=== PATIENT | male | born 1955 | race Caucasian/White ===

== ENCOUNTER → 2018-02-12 11:14 | Outpatient (REF) | payer MEDICARE, OTHER, SELFPAY ==
[2018-02-12 19:47] LABS: HCT 44.7 % (40.0-50.0); HGB 14.8 g/dL (13.5-17.5); Mean Corp. HGB Concentration 33.1 g/dL (32.0-36.0); Mean Corpuscular Hemoglobin 32.1 pg (27.0-33.0); Mean Platelet Volume 9.3 fL (8.0-11.0); Platelet Count 274 x1000/uL (130-400); RBC 4.61 m/cumm (4.50-6.00); RBC Distribution Width 12.9 % (11.8-14.1); White Blood Cell Count 5.96 k/cumm (4.4-10.8)
[2018-02-12 20:08] LABS: ALT 33 U/L (12-78); AST 32 U/L (15-37); Albumin 4.1 g/dL (3.4-5.0); Alkaline Phosphatase 38 U/L (46-116); Anion Gap 8.5 mmol/L (3-11); BUN 11 mg/dL (7-18); Bilirubin, Total 0.5 mg/dL (0.2-1.0); CO2 26.5 mmol/L (21.0-32.0); CREATININE 1.24 mg/dL (0.70-1.30); Calcium 9.1 mg/dL (8.5-10.1); Chloride 104 mmol/L (98-107); Estimated GFR 58.88 (mL/min/1.73m2); Glucose 91 mg/dL (70-100); Lipase 255 U/L (73-393); Potassium 4.2 mmol/L (3.5-5.1); Sodium 139 mmol/L (136-145); Total Protein 7.2 g/dL (6.4-8.2)
== END ==
LOC: NCHCN 11:14
PROVIDERS: PCP Family Medicine; Visit Provider Family Medicine
DX: R06.09 Other forms of dyspnea (principal); R07.89 Other chest pain; R11.0 Nausea; R51 Headache
CPT/HCPCS: 80053; 83690; 85027; 84443

== ENCOUNTER → 2018-04-02 09:49 | Outpatient (BNVA) | payer MEDICARE, OTHER, SELFPAY | PROVIDERS: PCP Family Medicine; Visit Provider Psychiatry & Neurology Neurology | DX: G20 Parkinson's disease (principal); M54.16 Radiculopathy, lumbar region; R11.0 Nausea | CPT/HCPCS: 99214 ==

== ENCOUNTER 2018-04-02 11:30 | Outpatient (CLI) | payer MEDICARE, OTHER, SELFPAY ==
[2018-04-03 16:20] LABS: Ceruloplasmin 22.5 mg/dL
[2018-04-03 21:01] LABS: Copper, Serum 0.93 mcg/mL (0.75-1.45)
[2018-04-04 12:13] LABS: Manganese, Serum <1.0 ng/mL (<2.4)
[2018-04-04 15:29] LABS: Arsenic <1 ng/mL (0-12); Cadmium 0.2 ng/mL (0.0-4.9); Health Care Provider State VT; Mercury <1 ng/mL (0-9); Patient State VT; Submitting Laboratory Phone 802-748-7458; Venous/Capillary Venous
[2018-04-07 12:12] LABS: Serotonin 602 ng/mL (<=230)
== END 2018-04-02 11:50 ==
PROVIDERS: PCP Family Medicine; Visit Provider Psychiatry & Neurology Neurology
DX: R63.3 Feeding difficulties (principal); G20 Parkinson's disease; G62.89 Other specified polyneuropathies; R63.4 Abnormal weight loss
CPT/HCPCS: 36415; 82390; 99214; 82175; 82300; 82525; 83655; 83785; 83825; 84260

== ENCOUNTER 2018-04-09 01:29 | Outpatient (CLI) | payer MEDICARE, OTHER, SELFPAY ==
--- NOTE | 2018-04-09 14:40 | DI.MRI_ITS ---
SYMPTOMS/DIAGNOSIS: LEFT LEG TIGHTNESS AND PAIN, LUMBAR RADICULOPATHY, M54.16 MRI OF THE LUMBAR SPINE: Comparison is made with June,. T1, T2 and STIR sagittal and T1 and T2 axial sequences were performed. Vertebral bodies are well maintained in height. The marrow signal appears normal. There are endplate osteophytes projecting mainly anteriorly. The T12-L1 through L2-3 discs appear intact. There is partial disc desiccation and disc bulging at L3-4, which again causes bilateral neural foraminal narrowing. Mild disc bulging is seen at L4-5. There is slight bulging of the L5-S1 disc. The conus medullaris appears normal. The aorta is normal in diameter. IMPRESSION: Stable degenerative disc changes and neural foraminal narrowing at L3-4.
== END 2018-04-09 01:49 ==
PROVIDERS: PCP Family Medicine; Visit Provider Psychiatry & Neurology Neurology
DX: M54.16 Radiculopathy, lumbar region (principal); M51.16 Intervertebral disc disorders with radiculopathy, lumbar region
CPT/HCPCS: 72148

== ENCOUNTER 2018-04-16 08:34 | Outpatient (CLI) | payer MEDICARE, OTHER, SELFPAY ==
--- NOTE | 2018-04-16 10:41 | PDOC.PAIN ---
Pain Clinic Procedure Note Current Active Problems Problem Status Onset Lumbar radiculopathy Chronic EPIDURAL STEROID WITH CATHETER INJECTION PROCEDURE NOTE COMMENTS: Patient has back pain with the left lower extremity foot. He was last seen on 2014 and had one epidural steroid injection and then a transforaminal at L3-4 gave him excellent relief for over a year. However pain is at time is going to his knee now. Has not had an updated MRI JUAN DIEGO RODRIGUEZ has been referred to the [facility] for lumbar epidural steroid injection. Patient was greeted by the nurse who verified patients name and . Patient was then taken to the fluoroscopy suite. Patient was interviewed and the medical record reviewed. There were no medical, pharmacologic, radiographic, or other structural contraindications to attempting fluoroscopically guided lumbar epidural steroid injection. Risks and expected side effects as well as potential benefits of the procedure were reviewed and voiced concerns addressed. The patient consent form was signed and witnessed. Standard time-out procedure was performed. Patient was placed in the prone position on the fluoroscopy table and automated blood pressure cuff and pulse oximeter applied. The skin entry point for entering/approaching the epidural space by a {L5-S1} and marked. Following thorough chlorhexadine preparation of the skin and draping and 1% lidocaine infiltration of the skin entry point and subcutaneous tissues, a 17 gauge Touhy needle was placed under fluoroscopic guidance and with loss of resistance technique into the epidural space. Needle tip placement and depth were aided and confirmed by fluoroscopy. There was no paresthesia or return of blood or CSF through the needle. An Arrow cath was thread to the {left and cephalad to L4} and 1 cc's of Omnipaque 240 was injected with clear epidural spread confirmed with fluoroscopy. 80mg depomedrol was injected. There was not any unusual discomfort expressed. Vital signs were stable throughout the procedure and were as recorded in nursing records. Follow up plans and appointments were discussed.Post procedure instruction was given as documented in nursing records and having met discharge criteria and was discharged from the [facility]. COMMENTS:f/u as needed. Would obtain new MRI if not better
--- NOTE | 2018-04-16 10:44 | PDOC.PAIN_ITS ---
Pain Clinic Procedure Note Current Active Problems Problem Status Onset Lumbar radiculopathy Chronic EPIDURAL STEROID WITH CATHETER INJECTION PROCEDURE NOTE COMMENTS: Patient has back pain with the left lower extremity foot. He was last seen on 2014 and had one epidural steroid injection and then a transforaminal at L3-4 gave him excellent relief for over a year. However pain is at time is going to his knee now. Has not had an updated MRI JUAN DIEGO RORDIGUEZ has been referred to the [facility] for lumbar epidural steroid injection. Patient was greeted by the nurse who verified patients name and . Patient was then taken to the fluoroscopy suite. Patient was interviewed and the medical record reviewed. There were no medical , pharmacologic, radiographic, or other structural contraindications to attempting fluoroscopically guided lumbar epidural steroid injection. Risks and expected side effects as well as potential benefits of the procedure were reviewed and voiced concerns addressed. The patient consent form was signed and witnessed. Standard time-out procedure was performed. Patient was placed in the prone position on the fluoroscopy table and automated blood pressure cuff and pulse oximeter applied. The skin entry point for entering/approaching the epidural space by a {L5-S1} and marked. Following thorough chlorhexadine preparation of the skin and draping and 1% lidocaine infiltration of the skin entry point and subcutaneous tissues, a 17 gauge Touhy needle was placed under fluoroscopic guidance and with loss of resistance technique into the epidural space. Needle tip placement and depth were aided and confirmed by fluoroscopy. There was no paresthesia or return of blood or CSF through the needle. An Arrow cath was thread to the {left and cephalad to L4 } and 1 cc's of Omnipaque 240 was injected with clear epidural spread confirmed with fluoroscopy. 80mg depomedrol was injected. There was not any unusual discomfort expressed. Vital signs were stable throughout the procedure and were as recorded in nursing records. Follow up plans and appointments were discussed.Post procedure instruction was given as documented in nursing records and having met discharge criteria and was discharged from the [facility]. COMMENTS:f/u as needed. Would obtain new MRI if not better
--- NOTE | 2018-04-16 10:44 | DI.RAD_ITS ---
SYMPTOM/DIAGNOSIS: PAIN, INJECTION C-ARM: Fluoroscopy Time: 22.1 seconds Images submitted from the pain clinic demonstrate needle positioning over the lower lumbar spine with injection of contrast material.
[2018-04-16] MEDS: Omnipaque 240 MG/ML 50 ML BTL IJ (10:56)
[2018-04-16] MEDS: methylPREDNISolone ACETATE 40 MG/ML VIAL IJ (10:56)
[2018-04-16 10:57] VITALS: BP 144/83; PULSE 87; RESP 17
== END 2018-04-16 08:54 ==
PROVIDERS: PCP Family Medicine; Visit Provider Anesthesiology Pain Medicine
DX: M54.16 Radiculopathy, lumbar region (principal); G89.29 Other chronic pain
CPT/HCPCS: 62323; 72100; J1030; Q9967

== ENCOUNTER 2018-04-19 10:10 | Outpatient (REF) | payer MEDICARE, OTHER, SELFPAY ==
[2018-04-22 15:27] LABS: 5-Hydroxyindoleacetic Acid, U 7.3 mg/24 h (<=8.0); Urine Volume 2350 mL
== END 2018-04-19 10:30 ==
LOC: LBN 10:10
PROVIDERS: PCP Family Medicine; Visit Provider Psychiatry & Neurology Neurology
DX: G20 Parkinson's disease (principal); R79.0 Abnormal level of blood mineral
CPT/HCPCS: 83497

== ENCOUNTER 2018-05-21 09:52 | Outpatient (CLI) | payer MEDICARE, OTHER, SELFPAY ==
--- NOTE | 2018-05-21 06:00 | DI.RAD_ITS ---
SYMPTOMS/DIAGNOSIS: LUMBAR RADICULOPATHY C-ARM FLUOROSCOPY OF THE LUMBAR SPINE: Fluoroscopy Time: 49 sec Fluoroscopy was provided for guidance with lumbar spine Pain Clinic injections. Hard copy images show needle placement on both sides of the spine. Please see procedure note for details.
[2018-05-21 10:24] VITALS: BP 118/75; PULSE 73; RESP 24; TEMP 37.3; O2SAT 98
--- NOTE | 2018-05-21 11:33 | PDOC.PAIN ---
Pain Clinic Procedure Note Current Active Problems Problem Status Onset Lumbar disc displacement without myelopathy Chronic LUMBAR / SACRAL TRANSFORAMINAL INJECTION JUAN DIEGO RODRIGUEZ has been referred to the [facility] for a transforaminal nerve root block and steroid injection. COMMENTS: patient had a epidural injection for his left at L4 which gave good relief. In the past she has had transforaminal L3 on the left helped the pain above his knee. He does have some foraminal stenosis bilaterally at the L3-4 and also complaining of right leg pain Patient was interviewed and the medical record reviewed. There were no medical, pharmacologic, radiographic or other structural contraindications to attempting fluoroscopically guided transforaminal nerve root block and epidural steroid injection. Risks and expected side effects as well as potential benefit of the procedure were reviewed and voiced concerns addressed. The printed consent form was signed and witnessed. Standard time-out procedure was performed. Patient was placed in the prone position on the fluoroscopy table and automated blood pressure cuff and pulse oximeter applied. Fluoroscopy was utilized to identify the {bilateral} neural foramen between L3 and L4 . A skin mikey was made for the needle insertion site. A Chlorhexadine prep was carried out, and sterile drapes were applied. Local anesthesia was achieved in the skin and subcutaneous tissues. A 22 gauge curved tip spinal needle was then inserted, advanced with fluoroscopic guidance into the neural foramen, confirmed on the lateral view. After negative aspiration, 2 ml of Omnipaque 240 was injected confirming position in A/P and lateral views. This showed a good spread of dye transforaminally into the epidural space. There was no vascular update with contrast injection under continuous fluoroscopy and digital substraction. 40 mg of Depo-Medrol was injected, followed by 0.5 ml of 0.5% bupivacaine flush for the nerve root block, as well. There was no unusual discomfort expressed.The needle was withdrawn. The patient tolerated the procedure well. A Band-Aid was applied. Vital signs were stable throughout the procedure and were as recorded in nursing records. If given, dosages of intravenous drugs for anxiolysis and analgesia were documented in nursing records. Follow up plans and appointments were discussed. Post procedure instruction was given as documented in nursing records and patient was discharged in the care of an identified meals on wheels driver. COMMENTS pain went from 12/24-07/27. Will follow-up as needed. CC: Sera Moore
--- NOTE | 2018-05-21 11:37 | PDOC.PAIN_ITS ---
Pain Clinic Procedure Note Current Active Problems Problem Status Onset Lumbar disc displacement without myelopathy Chronic LUMBAR / SACRAL TRANSFORAMINAL INJECTION JUAN DIEGO RODRIGUEZ has been referred to the [facility] for a transforaminal nerve root block and steroid injection. COMMENTS: patient had a epidural injection for his left at L4 which gave good relief. In the past she has had transforaminal L3 on the left helped the pain above his knee. He does have some foraminal stenosis bilaterally at the L3-4 and also complaining of right leg pain Patient was interviewed and the medical record reviewed. There were no medical , pharmacologic, radiographic or other structural contraindications to attempting fluoroscopically guided transforaminal nerve root block and epidural steroid injection. Risks and expected side effects as well as potential benefit of the procedure were reviewed and voiced concerns addressed. The printed consent form was signed and witnessed. Standard time-out procedure was performed. Patient was placed in the prone position on the fluoroscopy table and automated blood pressure cuff and pulse oximeter applied. Fluoroscopy was utilized to identify the {bilateral} neural foramen between L3 and L4 . A skin mikey was made for the needle insertion site. A Chlorhexadine prep was carried out, and sterile drapes were applied. Local anesthesia was achieved in the skin and subcutaneous tissues. A 22 gauge curved tip spinal needle was then inserted, advanced with fluoroscopic guidance into the neural foramen, confirmed on the lateral view. After negative aspiration, 2 ml of Omnipaque 240 was injected confirming position in A/P and lateral views. This showed a good spread of dye transforaminally into the epidural space. There was no vascular update with contrast injection under continuous fluoroscopy and digital substraction. 40 mg of Depo-Medrol was injected, followed by 0.5 ml of 0.5% bupivacaine flush for the nerve root block, as well. There was no unusual discomfort expressed.The needle was withdrawn. The patient tolerated the procedure well. A Band-Aid was applied. Vital signs were stable throughout the procedure and were as recorded in nursing records. If given, dosages of intravenous drugs for anxiolysis and analgesia were documented in nursing records. Follow up plans and appointments were discussed. Post procedure instruction was given as documented in nursing records and patient was discharged in the care of an identified national van truck driver. COMMENTS pain went from 12/24-07/27. Will follow-up as needed. CC: Sera Moore
[2018-05-21] MEDS: Omnipaque 240 MG/ML 50 ML BTL IJ (11:40)
[2018-05-21] MEDS: methylPREDNISolone ACETATE 40 MG/ML VIAL IM (11:41)
[2018-05-21 11:42] VITALS: BP 159/94; PULSE 84; RESP 18; O2SAT 98
[2018-05-21] MEDS: Bupivacaine 0.5% Pres-Free 30 ML VIAL IJ (11:42)
== END 2018-05-21 10:12 ==
PROVIDERS: PCP Family Medicine; Visit Provider Anesthesiology Pain Medicine
DX: M51.26 Other intervertebral disc displacement, lumbar region (principal); G89.29 Other chronic pain
CPT/HCPCS: 64483; 72100; J1030; Q9967

== ENCOUNTER 2018-06-11 08:53 | Outpatient (CLI) | payer MEDICARE, OTHER, SELFPAY ==
[2018-06-11 09:10] VITALS: BP 136/78; PULSE 77; RESP 22; TEMP 37.1; O2SAT 97
--- NOTE | 2018-06-11 09:36 | DI.RAD_ITS ---
SYMPTOMS/DIAGNOSIS: SACROILIAC JOINT DYSFUNCTION C-ARM FLUOROSCOPY, PAIN CLINIC, SACROILIAC: Fluoroscopy Time: 13.8 sec, 3.19 mGy C-arm fluoroscopy was utilized by Dr. Wu. Please see Dr. Wu's procedure note. Hard copies show right SI joint injection.
[2018-06-11 09:50] VITALS: BP 156/78; PULSE 99; RESP 18; O2SAT 98
--- NOTE | 2018-06-11 10:02 | PDOC.PAIN_ITS ---
Pain Clinic Procedure Note Current Active Problems Problem Status Onset Sacroiliac joint dysfunction of right side Chronic INTRA-ARTICULAR SI JOINT INJECTION JUAN DIEGO RODRIGUEZ has been referred to the [facility] for intra- articular SI joint injection. COMMENTS: Patient has had 2 epidural steroid injections back with symptoms which have worked to some extent. Right side hip and leg pain. Reviewed his recent MRI from 2018 show much other than some degenerative changes and some mild foraminal narrowing at L3-4. On exam he does have positive Kemps maneuver as well as positive tenderness over right SI joint including Felix's, compression and hip thrust. Patient was interviewed and the medical record reviewed. There were no medical, pharmacologic, radiographic or other structural contraindications to attempting fluoroscopically guided intra-articular SI joint injection. Risks and expected side effects as well as potential benefit of the procedure were reviewed and voiced concerns addressed. The printed consent form was signed and witnessed. Standard time-out procedure was performed. Patient was placed in the prone position on the fluoroscopy table and automated blood pressure cuff and pulse oximeter applied. The skin entry point for approaching {right/} SI joints was identified under the most advantageous fluoroscopic view and marked. Following thorough Chlorhexadine preparation of the skin and draping and 1% lidocaine infiltration of the skin entry point and subcutaneous tissues, a 22 gauge spinal needle was placed under fluoroscopic guidance into {right} SI joints was identified under the most advantageous fluoroscopic view and marked. Following thorough Chlorhexadine preparation of the skin and draping and 1% lidocaine infiltration of the skin entry point and subcutaneous tissues, a 22 gauge spinal needle was placed under fluoroscopic guidance into {right/} SI joint. Intra-articular placement was confirmed by a clear arthrogram resulting from the injection of 0.25ml Omnipaque 240, 1ml 0.5% bupivacaine, and half ml (40mg) of 80mg concentration Depomedrol were injected intra-articularily with an initial reproduction of a significant component of the usual pain. Vital signs were stable throughout the procedure and were as recorded in the docflowsheet by the nursing staff. If given, dosages of intravenous drugs for anxiolysis and analgesia were documented in MAR. Follow up plans and appointments were discussed with the patient. Post procedure instruction was given as documented in nursing documentation and having met discharge criteria, and was discharged from the [facility]. COMMENTS: Pain went from 12/24-06/26. He will follow-up with me as needed. Get relief still having leg pain asked him to return to Dr. Steen for further evaluation and possible nerve testing. CC: Sera Moore
[2018-06-11] MEDS: Bupivacaine 0.5% Pres-Free 30 ML VIAL IJ (10:03)
[2018-06-11] MEDS: Omnipaque 240 MG/ML 50 ML BTL IJ (10:04)
[2018-06-11] MEDS: methylPREDNISolone ACETATE 80 MG/ML VIAL IM (10:06)
== END 2018-06-11 09:13 ==
PROVIDERS: PCP Family Medicine; Visit Provider Anesthesiology Pain Medicine
DX: M53.3 Sacrococcygeal disorders, not elsewhere classified (principal)
CPT/HCPCS: 27096; 72200; J1040; Q9967

== ENCOUNTER → 2018-06-30 10:18 | Outpatient (BNVA) | payer MEDICARE, OTHER, SELFPAY | PROVIDERS: PCP Family Medicine; Referring Provider Family Medicine; Visit Provider Physical Therapy Assistant | DX: Z12.11 Encounter for screening for malignant neoplasm of colon (principal); G20 Parkinson's disease ==

== ENCOUNTER → 2018-07-07 14:31 | Outpatient (BNVA) | payer MEDICARE, OTHER, SELFPAY | PROVIDERS: PCP Family Medicine; Visit Provider Psychiatry & Neurology Neurology | DX: G20 Parkinson's disease (principal); M54.16 Radiculopathy, lumbar region | CPT/HCPCS: 99214 ==

== ENCOUNTER 2018-07-15 08:45 | Outpatient (CLI) | payer MEDICARE, OTHER, SELFPAY | END 2018-07-15 09:05 | PROVIDERS: PCP Family Medicine; Visit Provider Surgery | DX: Z12.11 Encounter for screening for malignant neoplasm of colon (principal); Z01.818 Encounter for other preprocedural examination ==

== ENCOUNTER 2018-07-21 06:08 | Day surgery (SDC) | payer MEDICARE, OTHER, SELFPAY ==
--- NOTE | 2018-07-21 06:25 | W.COLOREPORT ---
Date of service: 07/21/18 Time of Service: 07:42 Colonoscopy Report Date of procedure: 07/21/18 Pre-op diagnosis general: Colon Cancer Screening/LUQ pain Post-op diagnosis procedure note: same Procedure: Colonoscopy Surgeon: Merissa Ray Anesthesia proc note operative: MAC (Jose Mayer, SANJIV/ ASA 3) Estimated blood loss (mL): 0 Pathology: none sent Complications: None Disposition: same day Indications: Mr. Culver was seen in the office for a screening colonoscopy. His last colonoscopy was in 2004 and was normal. Risks, benefits and complications have been reviewed. Complications include but are not limited to bleeding, pain, perforation, missed small lesion/polyp, sore throat, aspiration and adverse reaction to the medications. Questions were entertained and answered to their satisfaction and they wished to proceed. No guarantees were given or implied. Prep: Miralax/Dulcolax Procedure Start Time: 07:42 Procedure End Time: 08:02 Retraction Time: 11 minutes Findings: Normal colon Procedure Description: After informed consent was obtained the patient was taken to the procedure room and placed in a left decubitous position. Monitors were applied and a time out was done. The patients name, date of , procedure, allergies to medications and metal in their body was reviewed. The patient was then sedated. Once sedated and comfortable a rectal exam was done. External exam was normal. Internal exam revealed a normal sphincter tone and no palpable masses. The prostate felt smooth. The scope was then introduced and retro-flexed. No internal hemorrhoids were identified. The scope was then advanced to the cecum without difficulty. The TI and appendiceal orifice were identified. The prep was adequate. The scope was then slowly retracted over 11 minutes back into the rectum. There were no polyps and no diverticulosis. The scope was removed and the patient was woken up and taken back to Same day surgery in stable condition. The patient tolerated the procedure well and there were no immediate complications. Follow up: The patient should follow up as needed unless they develop changes in bowel habits or other new gastrointestinal complaints.
--- NOTE | 2018-07-21 06:26 | W.PM.DSUDISC ---
Discharge Plan Disposition Patient Disposition: HOME Condition: Good Discharge Details Reason For Visit: Colon Cancer Screening Attending Provider: Merissa Ray Primary Care Provider: Sera Moore Home Meds and New Rx's Prescriptions: Continued ranitidine HCl [Zantac 75] 75 mg tablet 75 mg PO DAILY PRNRF: 0 naproxen 250 mg tablet 250 mg PO BID PRNRF: 0 BILBERRY 1 ea PO DAILY RF: 0 Glucos/Lex 2 tab BID RF: 0 Tumeric 2 cap PO DAILY RF: 0 ascorbate calcium 500 MG tablet 500 mg PO DAILY RF: 0 potassium gluconate 99 MG tablet 99 mg PO BID RF: 0 CANNABIS 1 appful PO DAILY RF: 0 vitamin A 10,000 UNIT capsule 15,000 units PO DAILY RF: 0 coenzyme Q10 [Co Q-10] 10 MG capsule 10 mg PO TID RF: 0 magnesium 250 MG tablet 500 mg PO DAILY PRNRF: 0 cyanocobalamin (vitamin B-12) [Vitamin B-12] 1,000 MCG tablet, sublingual 1,000 mcg PO BID RF: 0 ondansetron 4 MG tablet,disintegrating 4 mg PO Q6H PRNQty: 30 RF: 0 Liposomal Glutathione 250 mg capsule 1 cap PO BID RF: 0 Pyridoxal- Phospate 50 mg capsule 2 - 4 cap PO HS RF: 0 Cbd Oil 2 cap PO PRN PRNRF: 0 Discontinued bisacodyl [Dulcolax (bisacodyl)] 5 mg tablet,delayed release (DR/EC) 5 mg PO ONCE Qty: 4 RF: 0 polyethylene glycol 3350 17 gram/dose powder 255 g PO ONCE Qty: 255 RF: 0 Discharge Instructions Instructions: Colonoscopy (DC) Additional Instructions: Findings: Normal Colon Follow up: as needed Please call if you develop: fevers >101.5 Nausea or Vomiting Abdominal pain that is not transient DAY SURGERY UNIT POST COLONOSCOPY INSTRUCTIONS 1. Because there will be medication in your system for the next 24 hours, you may feel a little sleepy. Your coordination will be affected. Therefore: a. Do not drive or operate dangerous equipment for 24 hours. b. Do not drink alcohol beverages for 24 hours (not even beer). c. Plan to go home and rest for the day. 2. Generally there are no restrictions on your activity after a day or so has gone by, but you may feel a bit fatigued for a few days. 3 After you arrive home you may have a light meal and return to a normal diet as you can tolerate it without feeling sick to your stomach. 4. After surgery, you may feel pain or discomfort. This should be only transient, but if it persists please contact your doctor. 5. If there are any questions regarding the findings of your procedure, please feel free to contact your doctor. 6. If you are unable to contact your doctor with a problem, contact the hospital at [phone]. 7. Continue all your regular medications unless directed otherwise. I understand the above instructions and have no questions. Signature of Patient or Responsible Adult Escort Date/Time Name of Responsible Adult Escort Signature of Nurse Date/Time Activity:: Activity as Tolerated Diet:: As Tolerated Discharge Orders Discharge Orders: Discharge Order (Routine); Ordered 07/21/18 Ordered By: Merissa Ray DS: Diagnosis Discharge Diagnosis (1) S/P colonoscopy: Status: Acute
[2018-07-21 06:41] VITALS: BP 120/76; TEMP 36.8
[2018-07-21] MEDS: Lactated Ringers 1,000 ML 80 ML IV (07:04)
[2018-07-21 08:18] VITALS: BP 84/50; PULSE 62; RESP 16; O2SAT 95
[2018-07-21 08:29] VITALS: PULSE 60; O2SAT 94
[2018-07-21 08:39] VITALS: BP 126/75; PULSE 71; RESP 18; TEMP 36.9; O2SAT 96
== END 2018-07-21 09:13 | disposition home or self-care (01) ==
PROVIDERS: PCP Family Medicine; Visit Provider Surgery
PROC: 0DJD8ZZ Inspection of Lower Intestinal Tract, Via Natural or Artificial Opening Endoscopic (ICD-10-PCS; CPT 45378; principal; 2018-07-21 07:30)
DX: Z12.11 Encounter for screening for malignant neoplasm of colon (principal); Z86.010 Personal history of colon polyps; K57.30 Diverticulosis of large intestine without perforation or abscess without bleeding
CPT/HCPCS: G0105; G0121

== ENCOUNTER 2023-01-18 16:12 | Outpatient (CLI) | payer MEDICARE, SELFPAY ==
[2023-01-18 17:10] LABS: Hemoglobin A1C 5.7 % (<5.7)
[2023-01-18 17:55] LABS: Anion Gap 10.7 mmol/L (3-11); BUN 11 mg/dL (7-18); CO2 27.3 mmol/L (21.0-32.0); CREATININE 1.2 mg/dL (0.70-1.30); Calculated LDL 102 mg/dL (<100); Chloride 103 mmol/L (98-107); Cholesterol 163 mg/dL (<200); Estimated GFR 65.87 (mL/min/1.73m2); Glucose 90 mg/dL (74-106); HDL Cholesterol 41 mg/dL (40-60); Potassium 3.9 mmol/L (3.5-5.1); Sodium 141 mmol/L (136-145); Triglyceride 103 mg/dL (<150)
[2023-01-21 10:01] LABS: Hepatitis C Ab w Rflx HCV PCR Negative (Negative)
[2023-01-21 13:37] LABS: TB Interpretation Negative (Negative)
== END 2023-01-18 16:13 | disposition home or self-care (01) ==
LOC: LBO 16:20
PROVIDERS: PCP Family Medicine; Visit Provider Family Medicine
DX: Z00.00 Encounter for general adult medical examination without abnormal findings (principal); Z13.89 Encounter for screening for other disorder; H35.52 Pigmentary retinal dystrophy; I34.0 Nonrheumatic mitral (valve) insufficiency; G25.81 Restless legs syndrome; G20 Parkinson's disease
CPT/HCPCS: 36415; 80048; 80061; 86803; 83036; 86480